=== PATIENT | female | born 1985 | race Caucasian/White ===

== ENCOUNTER 2020-04-16 10:40 | Outpatient (RCR) | payer BC, SELFPAY ==
--- NOTE | 2020-04-09 12:00 | PC.NURSE ---
IN 1000 OUT 1050 HISTORY: Pt. delivered at [facility] at 39 weeks. had no complications after delivery. Mother had no complications after delivery. is now 8 days old. Infant appears to be well cared for. has been seen by ICP as scheduled. Infant last seen by ICP on 04/06/2020. Mother reports: This is third child to breastfeed, with other children mother had issues with latch and low milk supply. Mother pumped and bottle fed with latch child and required supplementation for low milk supply and bottle fed first child. Mother states is sleepy at breast and is on and off and will nurse up to 30 minutes and not be satisfied. Mother will pump after each feeding and is supplementing 1 oz of EBM/formula each feeding. Mother has a HX of low milk supply and hormone related infertility. Discussed how infertility may impact milk supply. Mother wishes: To increase milk supply and discontinue supplementation. Currently at 8 wets per day and 1-2 yellow seedy stools per day. weight: 7#14 Discharge weight: 7#5 Last Weight: 7#3 on 04/09 Pre feeding weight: 3365 Post feeding weight: 3397 OBSERVATION: Mother puts to breast in cradle positioning, allowing to latch shallow to breast. Infant will eagerly latch with with freq. suckling/ swallowing noted, then infant slips down and releases latch. will fuss and make weak attempts to latch. Demonstrated stimulation techniques to wake infant for feeding. Assisted with infant to breast. Reviewed positioning/alignment in cross cradle, holding breast in U hold and guided asymmetrical latch on. Discussed rational for each. Infant was able to latch correctly. nursed eagerly, with steady draws and frequent swallowing noted. Reviewed signs of a correct latch, effective nursing and suck swallow ratio. When infant began to slow with suckling and swallowing, advised to do breast compressions to keep milk flowing and entice infant to continue to suckle. responded well, with good eager suckling. was able to maintain latch without discomfort to mother. Advised to continue to do breast compressions during entire feeding with stimulation to keep awake and nursing effectively for increased intake and to assist with maintaining deep latch. Suggested mother hold breast during entire feeding to assist with maintaining deep latch. PLAN: Mother will follow above feeding plan using techniques for deeper latch. She will continue to supplement after each feeding and will initiate pumping for 15 minutes after every other feeding to assist with increasing supply. Mother will call with further questions or concerns. Follow up /phone call scheduled for 04/15 to evaluate feeding states and milk supply.
--- NOTE | 2020-04-16 12:00 | PC.NURSE ---
IN 1000 OUT 1045 HISTORY: Follow up visit Mother reports: Infant has seen ICP for 2 week weight check and was up to weight. Mother has been working with deep latch and keeping infant awake and effectively feeding while at breast. Mother feels is more awake and consistently feeding. is able to maintain latch with cradle positioning. requires 1 oz of EBM/formula after all breastfeedings. Mother is pumping 1-1.5 oz EBM, 2-3 times per day,reporting she has a 3 yr old and does not have time to pump each feeding. Currently at 8 wets per day and 4 yellow seedy stools per day. OBSERVATION: Mother is able to independently latch infant with appropriate positioning/alignment. She denies any nipple discomfort, infant nurses with long rhythmic draw and freq swallowing noted. Mother freq. encourages infant if pausing is noted. Discussed mother's HX of infertility and EBL that may impact milk supply. Suggested mother continue to pump as she can for the next week. Reviewed if mother has a suppressed milk production, an increase is supply may happen, it usually does not increase after 3 weeks. PLAN: Mother will continue to as she is with breast and bottle feeding, with pumping after as time allows. If an increase in supply is not noted after 3 weeks mother will discontinue pumping, she will then breast and bottle. Mother will call with further questions or concerns. Follow up phone call scheduled for 04-23-2020.
== END 2020-05-06 08:32 | disposition home or self-care (01) ==
LOC: ANHOBOP 10:40
PROVIDERS: Visit Provider Pediatrics
DX: Z39.1 Encounter for care and examination of lactating mother (principal)
CPT/HCPCS: 99212; G0463

== ENCOUNTER 2024-08-05 18:33 | Emergency (ER) | payer BC, SELFPAY ==
--- NOTE | ~2024-08-05 | XR_ITS ---
EXAMINATION: XR hand LT min 3V DATE: 08/05/2024 19:09 INDICATION: Left hand dorsal swelling and pain. TECHNIQUE: 3 views of left hand were obtained. COMPARISON: None. FINDINGS: Alignment is normal. There is a bone fragment dorsal to the carpus on the lateral view. Siomara nt spaces are normal. IMPRESSION: 1. Bone fragment dorsal to the carpus on the lateral view, which may be an avulsion fracture of dorsa l pole of triquetrum or a loose body. Reviewed, dictated and finalized at location A. PING PACKER IMPRESSION: 1. Bone fragment dorsal to the carpus on the lateral view, which may be an avul michelle fracture of dorsal pole of triquetrum or a loose body.
[2024-08-05 18:50] VITALS: BP 127/71; PULSE 71; RESP 16; TEMP 36.7; O2SAT 100
--- NOTE | 2024-08-05 18:57 | ED.GENADULT ---
HPI - General Adult General Chief complaint: Extremity Problem,Nontraumatic Stated complaint: hand injury Time Seen by Provider: 08/05/24 18:57 Source: patient, RN notes reviewed and old records reviewed Mode of arrival: ambulatory Limitations: no limitations History of Present Illness HPI narrative: 39-year-old female presents to the [facility] with tenderness, swelling to the dorsal aspect left wrist and hand. Patient states on Monday she woke up with discomfort to the left wrist, pain has increased today. Patient is left hand dominant Patient denies any injury. States that she woke up with the discomfort, pain is worse with trying to make a fist. Unable to completely extend fingers No wounds noted. No fluctuance. No signs of an abscess Onset (ago): day(s) (2) Related Data Home Medications ?Medication ?Instructions ?Recorded ?Confirmed ?Last Taken ?Type drospirenone 3 mg-estetrol 14.2 mg tablet PO 08/05/24 Unknown History (28) tablet (Nextstellis) Allergies Allergy/AdvReac Type Severity Reaction Status Date / Time No Known Allergies Allergy Verified 08/05/24 18:51 Review of Systems Review of Systems: All systems reviewed & are unremarkable except as noted in HPI and below Constitutional: Constitutional: Reports no additional constitutional complaints ENT: Reports system reviewed and no additional complaints, except as documented Cardiovascular: Cardiovascular: Reports no additional cardiovascular complaints, Denies chest pain and Denies dyspnea Respiratory: Respiratory: Reports no additional respiratory complaints, Denies chest congestion, Denies cough and Denies dyspnea Gastrointestinal: Gastrointestinal: Reports no additional gastrointestinal complaints, Denies abdominal pain, Denies nausea and Denies vomiting Musculoskeletal: Musculoskeletal: Reports as per HPI, Reports joint swelling and Reports limited range of motion Integumentary/Breasts: Skin/Breast: Reports system reviewed and no additional complaints, except as docu PMFSH Comments At the time of my signature, I reviewed and agree with the nursing past medical, surgical, social, and family history. There is no relevant family history pertinent to the patient complaint. Exam Const: General: cooperative, healthy appearing, comfortable, no acute distress, well developed, alert and well nourished Nutritional Appearance: well nourished Orientation/consciousness: patient oriented x3 Limitations: no limitations HENMT: Head: normal to inspection Face and sinus: normal facial exam and face symmetric Eyes: General: appearance normal, both eyes and all related structures Alignment and Position: alignment normal Periorbital: periorbital findings normal Neck: Neck: normal visual inspection, full ROM, no lymphadenopathy and no meningeal signs Chest: Chest palpation & inspection: normal inspection of the chest Resp: Effort & Inspection: normal respiratory effort and able to speak in complete sentences Cardio: Rate: regular rate Skin: General skin exam: normal color and no rashes or lesions noted Lesions: no lesions Rashes: no rashes Wounds: no wounds Neuro: General: patient oriented x3, gait normal, tone normal, moves all extremities and no meningeal signs Cognition (Neuro): normal cognition Speech: normal speech Gait exam (Neuro): Normal gait present Extrem: General: normal to inspection, full ROM, capillary refill normal and normal gait Left upper extremity: wrist tenderness, swelling and abnormal ROM and hand normal capillary refill, tenderness of the dorsal hand, abnormal ROM of finger pain with active ROM and swelling; no unusual warmth Psych: Appearance: grossly normal and well kempt Mental Status: mental status grossly normal Speech and movement: Normal speech and movement present and Clear speech present Affect: normal affect Attitude: cooperative Course Course Level of Care: Express Care Visit Vital Signs Vital signs: Vital Signs Temperature 98.1 F 08/05/24 18:50 Pulse Rate 71 08/05/24 18:50 Respiratory Rate 16 08/05/24 18:50 Blood Pressure 127/71 08/05/24 18:50 Pulse Oximetry 100 08/05/24 18:50 Oxygen Delivery Room Air 08/05/24 18:50 Temperature 98.1 F 08/05/24 18:50 Pulse Rate 71 08/05/24 18:50 Respiratory Rate 16 08/05/24 18:50 Blood Pressure 127/71 08/05/24 18:50 Pulse Oximetry 100 08/05/24 18:50 Oxygen Delivery Room Air 08/05/24 18:50 Reviewed Medical Decision Making MDM Narrative Medical decision making narrative: Patient sitting comfortably in exam room. Nontoxic, vitals stable. Patient in no acute distress Patient presents for left dorsal hand pain. Patient x-ray shows possible avulsion fracture, referred to multiple providers Splint applied, sling given Patient appropriate for outpatient treatment and follow-up Discharge instructions reviewed with patient, as well as provided in writing per nursing staff. The instructions also include specific and strict return/GO TO THE ER as well as f/u information. All questions have been answered, and the patient deny any further questions with discharge and discharge plan. Some parts of this dictation were generated by voice recognition software and may contain typographical and/or grammatical inaccuracies. Differential Diagnosis Differential Diagnosis: Cellulitis, fracture, contusion, sprain Medical Records Medical records reviewed: Yes I reviewed the external patient's medical records. Vital Signs Vital Signs: Vital Signs Temperature 98.1 F 08/05/24 18:50 Pulse Rate 71 08/05/24 18:50 Respiratory Rate 16 08/05/24 18:50 Blood Pressure 127/71 08/05/24 18:50 Pulse Oximetry 100 08/05/24 18:50 Oxygen Delivery Room Air 08/05/24 18:50 Temperature 98.1 F 08/05/24 18:50 Pulse Rate 71 08/05/24 18:50 Respiratory Rate 16 08/05/24 18:50 Blood Pressure 127/71 08/05/24 18:50 Pulse Oximetry 100 08/05/24 18:50 Oxygen Delivery Room Air 08/05/24 18:50 Reviewed Lab Data Lab results reviewed: Yes I reviewed the patient's lab results. Labs: Reviewed Imaging Data Radiologist's impression: EXAMINATION: XR hand LT min 3V DATE: 08/05/2024 19:09 INDICATION: Left hand dorsal swelling and pain. TECHNIQUE: 3 views of left hand were obtained. COMPARISON: None. FINDINGS: Alignment is normal. There is a bone fragment dorsal to the carpus on the lateral view. Joint spaces are normal. IMPRESSION: 1. Bone fragment dorsal to the carpus on the lateral view, which may be an avulsion fracture of dorsal pole of triquetrum or a loose body. Critical Care Time Critical Care Time Critical Care Time: No Discharge Plan Discharge Clinical Impression: Avulsion fracture Fracture of triquetrum of left wrist, closed Qualifiers: Encounter type: initial encounter Fracture alignment: nondisplaced Qualified Code(s): S62.115A - Nondisplaced fracture of triquetrum [cuneiform] bone, left wrist, initial encounter for closed fracture Patient Disposition: Home, Self-Care Condition: Stable Instructions: Wrist Fracture in Adults (ED), How to Use a Sling (ED), Splint Care (ED) Additional Instructions: Rest, ice and elevate every 2-3 hours for 15-20 minutes while awake Take Tylenol alternating with Motrin as needed for pain Follow-up with hand specialist either Dr. Riggins or Dr. Mandy Barragan. [facility] hand surgery [phone] or [phone] Follow primary care provider For new or worsening symptoms go directly to the emergency room Patient Language: Georgian Prescriptions: No Action Nextstellis 3 mg- 14.2 mg (28) tablet PO Follow-up/Referrals: Javier Riggins MD [Physician] - 2 Days Mono Van MD [Physician] - UNKNOWN,DOCTOR [Primary Care Provider] - Stand Alone Forms: Work/School Release IP Time of Disposition: 19:29
== END 2024-08-05 19:45 | disposition home or self-care (01) ==
PROVIDERS: Emergency Provider Nurse Practitioner
DX: S62.115A Nondisplaced fracture of triquetrum [cuneiform] bone, left wrist, initial encounter for closed fracture (principal); X58.XXXA Exposure to other specified factors, initial encounter
CPT/HCPCS: 29125; 73130; 99204; A4565; G0463

== ENCOUNTER 2024-08-19 08:26 | Outpatient (CLI) | payer BC, SELFPAY ==
--- NOTE | ~2024-08-19 | XR_ITS ---
EXAMINATION: XR wrist LT min 3V DATE: 08/19/2024 08:40 INDICATION: Left wrist pain TECHNIQUE: Posteroanterior, ulnar deviation, oblique, and lateral views of the left wrist were obtain ed. COMPARISON: Left hand radiographs dated 08/05/2024 FINDINGS: Bone alignment is normal. The previously seen small calcific density which projected dorsal to the pr oximal carpal row is no longer visualized. No other lesions suspicious for fracture. Joint spaces are normal. Decrease in the prior dorsal sided soft tissue swelling at the carpus.. IMPRESSION: 1. The tiny calcific density previously seen dorsal to the proximal carpal row is no longer visualize d. This could represent interval resorption of a small flake-like triquetral avulsion fracture fragme nt although a definitive donor site is not appreciated. Reviewed, dictated and finalized at location B. ENTICE INSTRUMENT TECHNICIAN IMPRESSION: 1. The tiny calcific density previously seen dorsal to the proximal carpal row is no longer visualized. This could represent interval resorption of a small fl elizabeth-like triquetral avulsion fracture fragment although a definitive donor site is not appreciated.
--- OUTSIDE RECORDS SUMMARY | 2024-08-26 13:43 | XMS_ITS | Encounter Summary ---
Author Organization [facility] Address [address] [place] [address]. [place], [place] [id number] [place] [address] Care Team Providers Care International Affairs Vice President Name Role Phone Unavailable Primary Care Provider Unavailabl e Encounter Details Date Type Department Care Team (Late st Contact Info) Description 06/13/2000 Abstract [facility] - Physical Therapy [address] [place] [address] Elan Herrmann MD [address] [place] [address] Social History Tobacco Use Types Packs/Day Years Used Date Smoking Tobacco: Never Assessed Comments Unknown Sex and Gender Information Value Date Recorded Sex Assigned at Not on file Legal Sex Female 6:43 PM CDT Gender Identity Not on file Sexual Orientation Not on file documented as of this encounter Plan of Treatment Not on file documented as of this encounter Visit Diagnoses Not on filedocumented in this encounter
--- OUTSIDE RECORDS SUMMARY | 2024-08-26 13:43 | XMS_ITS | Encounter Summary ---
Author Organization [facility] Address [address] [place] [address]. [place], [place] [address] [place] [address] Care Team Providers Care Insulator Helper Name Role Phone Unavailable Primary Care Provider Unavailabl e Encounter Details Date Type Department Care Team (Late st Contact Info) Description 02/08/2003 Abstract [facility] Diagnostic Imaging [facility] [place] [address] , Laurie Hayward MD Social History Tobacco Use Types Packs/Day Years [...]
--- OUTSIDE RECORDS SUMMARY | 2024-08-26 13:43 | XMS_ITS | Encounter Summary ---
Author Organization [facility] Address [address] [place] [address]. [place], [place] [address] [place] [address] Care Team Providers Care Range Mechanic Name Role Phone Unavailable Primary Care Provider Unavailabl e Encounter Details Date Type Department Care Team (Late st Contact Info) Description 06/16/[address] [facility] [place] [address] , Laurie Hayward MD Social History Tobacco [...]
--- OUTSIDE RECORDS SUMMARY | 2024-08-26 13:43 | XMS_ITS | Encounter Summary ---
Author Organization [facility] Address [address] [place] [address]. [place], [place] [id number] [place] [address] Care Team Providers Care Lute Packer Or Applier Name Role Phone Elan Herrmann MD Primary Care Provider [phone] Encounter Details Date Type Department Care Team (Latest Contact Info) Description 03/30/2020 10:55 AM CDT - 03/30/2020 11:59 PM CDT Hospital Encounter [facility] [place] [address] Eli Mcnamara MD [address] [place] [address] Discharge Disposition: Home or Self Care (Routine Discharge) Social History Tobacco Use Types Packs/Day Years Used Date Smoking Tobacco: Never Assessed Comments Yes Sex and Gender Information Value Date Recorded Sex Assigned at Not on file Legal Sex Female 6:43 PM CDT Gender Identity Not on file Sexual Orientation Not on file documented as of this encounter Nursing Notes * Elizabeth Machuca RN - 03/24/2020 1:43 PM CDT Discussed details of COVID testing with patient. Verbal consent given for testing. documented in this encounter Plan of Treatment Not on file documented as of this encounter Procedures Procedure Name Priority Date/Time Associated Diagnosis Comments CORONAVIRUS (COVID 19) Routine 03/30/2020 9:30 AM CDT Preop Testing documented in this encounter Results * PRE-SURGICAL/PRE-PROCEDURE CORONAVIRUS (COVID 19) (03/30/2020 9:30 AM CDT) CORONAVIRUS SARS COV 2 PCR (RESP) NOT DETECTED NOT DETECTED 04/01/2020 12:19 AM CDT [facility] Comment: A Not Detected (negative) test result for this test means that SARS- CoV-2 RNA was not present in the specimen above the limit of detection. A negative result does not rule out the possibility of COVID-19 and should not be used as the sole basis for treatment or patient management decisions. ??If COVID-19 is still suspected, based on exposure history together with other clinical findings, re-testing should be considered in consultation with public health authorities. Laboratory test results should always be considered in the context of clinical observations and epidemiological data in making a final diagnosis and patient management decisions. Please review the Fact Sheets and FDA authorized labeling available for health care providers and patients using the following websites: https://[email or web address]-19/HCP/NAAT/fact-sheet2 https://[email or web address]/home/Covid-19/Patients/NAAT/ fact-sheet2 This test has been authorized by the FDA under an Emergency Use Authorization (EUA) for use by authorized laboratories. Due to the current public health emergency, [facility] is receiving a high volume of samples from a wide variety of swabs and media for COVID-19 testing. In order to serve patients during this public health crisis, samples from appropriate clinical sources are being tested. Negative test results derived from specimens received in non-commercially manufactured viral collection and transport media, or in media and sample collection kits not yet authorized by FDA for COVID-19 testing should be cautiously evaluated and the patient potentially subjected to extra precautions such as additional clinical monitoring, including collection of an additional specimen. Methodology: ??Nucleic Acid Amplification Test (NAAT) includes PCR or TMA Additional information about COVID-19 can be found at the [facility] website: [email or web address]. Test performed at [facility] [address] [place], [place] ??[phone] Director: MAYKEL ROBLES DO,MPH NASOPHARYNGEAL SWAB / Unknown 03/30/2020 9:30 AM CDT us Eli Mcnamara MD MICROBIOLOGY - GENERAL ORDERABLE S Final Result [facility] [address] [place] [address], documented in this encounter Visit Diagnoses Diagnosis Preop testing Preoperative examination, unspecified documented in this encounter Additional Health Concerns Infection Onset Date Last Indicated Resolved Time COVID-19 Rule Out 03/30/2020 03/30/2020 04/01/2020 12:19 AM CDT documented as of this encounter Care Teams Lute Packer Or Applier Relationship Specialty Start Date End Date Elan Herrmann MD [address] [place] [address] PCP - General FAMILY PRACTICE 03/25/20 documented as of this encounter
--- OUTSIDE RECORDS SUMMARY | 2024-08-26 13:43 | XMS_ITS | Encounter Summary ---
Author Organization [facility] Address [address] [place] [address]. [place] [address] [place] [address] Care Team Providers Care Vice President Quality Assurance Name Role Phone Unavailable Primary Care Provider Unavailabl e Encounter Details Date Type Department Care Team (Late st Contact Info) Description 03/24/[address] [facility] [place] [address] Eli Mcnamara MD [address] [place] [address] Social History Tobacco Use Types Packs/Day Years Used Date Smoking Tobacco: Never Assessed Comments Unknown Sex and Gender Information Value Date Recorded Sex Assigned at Not on file Legal Sex Female 6:43 PM CDT Gender Identity Not on file Sexual Orientation Not on file documented as of this encounter Plan of Treatment Not on file documented as of this encounter Results * PRE-SURGICAL/PRE-PROCEDURE CORONAVIRUS (COVID 19) (03/30/2020 9:30 AM CDT) CORONAVIRUS SARS COV 2 PCR (RESP) NOT DETECTED NOT DETECTED 04/01/2020 12:19 AM CDT [facility] Comment: A Not Detected (negative) test [...] providers and patients using the following websites: https://www.[email or web address] de Cadeaux/home/Covid-[email or web address]/HCP/NAAT/fact-sheet2 https://www.[email or web address].Graine de Cadeaux/home/Covid-19/Patients/NAAT/ fact-sheet2 This test has been authorized by the FDA under an Emergency Use Authorization (EUA) for use by authorized laboratories. Due to the current public health emergency, [facility] is receiving a high volume of samples [...] about COVID-19 can be found at the [facility] website: www.O-film/Covid19. Test performed at [facility] [place] [address] [place], [place] ??[phone] Director: MAYKEL ROBLES DO,MPH NASOPHARYNGEAL SWAB / Unknown 03/30/2020 9:30 AM CDT us Eli Mcnamaar MD MICROBIOLOGY - GENERAL ORDERABLE S Final Result [facility] [address] [address] documented in this encounter Visit Diagnoses Diagnosis Preop testing- Primary Preoperative examination, unspecified documented in this encounter
--- OUTSIDE RECORDS SUMMARY | 2024-08-26 13:43 | XMS_ITS | Encounter Summary ---
Author Organization [facility] Address [address] [place] [address]. [place], [place] [address] [place] [address] Care Team Providers Care Certified Art Therapist Name Role Phone Elan Herrmann MD Primary Care Provider +1- [phone] Encounter Details Date Type Department Care Team (Latest Contact Info) Description 04/01/2020 Travel Social History Tobacco Use Types Packs/Day Years Used Date Smoking Tobacco: Former Cigarettes Smokeless Tobacco: Never Alcohol Use Standard Drinks/Week Comments Not Currently 0 (1 standard drink = 0.6 oz pur e alcohol) Comments Yes Sex and Gender Information Value Date Recorded Sex Assigned at Not on file Legal Sex Female 6:43 PM CDT Gender Identity Not on file Sexual Orientation Not on file COVID-19 Exposure Response Date Recorded In the last month, have you been in contact with someone who was confirmed or suspected to have Coronavirus / COVID-19? No / Unsure 04/01/2020 1:16 PM CDT documented as of this encounter Functional Status * Question Answer Date of Assessment Author Status Do you have serious difficulty walking or climbing stairs? No 04/01/2020 1:32 PM CDT Devi Miguel RN Active * Question Answer Date of Assessment Author Status Do you have difficulty dressing or bathing? No 04/01/2020 1:32 PM CDT Devi Miguel RN Active Because of a physical, mental, or emotional condition, do you have difficulty doing errands alone such as visiting a doctor's office or shopping? No 04/01/2020 1:32 PM CDT Liss Miguel RN Active * RETIRED Are you deaf or do you have serious difficulty hearing Answer Date of Assessment Author Status No 04/01/2020 1:32 PM CDT Activ e * RETIRED Are you blind or do you have serious difficulty seeing, even when wearing glasses? Answer Date of Assessment Author Status No 04/01/2020 1:32 PM CDT Activ e * Do you have serious difficulty walking or climbing stairs? Answer Date of Assessment Author Status No 04/01/2020 1:32 PM CDT Diana Miguel RN Active * Do you have difficulty dressing or bathing? Answer Date of Assessment Author Status No 04/01/2020 1:32 PM CDT Diana Miguel RN Active * Because of a physical, mental, or emotional condition, do you have difficulty doing errands alone such as visiting a doctor's office or shopping? Answer Date of Assessment Author Status No 04/01/2020 1:32 PM CDT Diana Miguel RN Active documented as of this encounter Mental Status * Question Answer Entry Date Author Status Because of a physical, mental, or emotional condition, do you have serious difficulty concentrating, remembering, or making decisions? No 04/01/2020 1:32 PM CDT Louise Miguel RN Active * Because of a physical, mental, or emotional condition, do you have serious difficulty concentrating, remembering, or making decisions? Answer Entry Date Author Status No 04/01/2020 1:32 PM CDT Diana Miguel RN Active documented in this encounter Plan of Treatment Not on file documented as of this encounter Visit Diagnoses Not on filedocumented in this encounter Additional Health Concerns Infection Onset Date Last Indicated Resolved Time COVID-19 Rule Out 03/30/2020 03/30/2020 04/01/2020 12:19 AM CDT documented as of this encounter Care Teams Certified Art Therapist Relationship Specialty Start Date End Date Elan Herrmann MD [address] [address] PCP - General FAMILY PRACTICE 03/25/20 documented as of this encounter
--- OUTSIDE RECORDS SUMMARY | 2024-08-26 13:43 | XMS_ITS | Clinical Summary ---
Author Organization [facility] Address [address] [place] [address]. [place], [place] [address] [place] [address] Care Team Providers Care Portfolio Accountant Name Role Phone Elan Herrmann MD Primary Care Provider +1- [phone] Allergies No known active allergies Medications sertraline 25 MG tablet Take 25 mg by mouth daily. Active HYDROcodone-acet aminophen 5-325 MG tabletIndication s:Acute Pain < 3 Day Supply Take 1 tablet by mouth every 4 (four) hours as needed. Indications : Acute Pain < 3 Day Supply 7 tablet 04/03/2020 Active Active Problems Problem Noted Date Diagnosed Date ([facility]) 04/01/2020 Family History Medical History Relation Comments No Known Problems Daughter POLIO Father Cancer Maternal Grandfather COLON Cancer Maternal Grandmother COLON Alzheimers Mother EARLY ONSET Cancer Paternal Grandfather Dementia Paternal Grandfather Dementia Paternal Grandmother No Known Problems Sister No Known Problems Son Relation Status Comments Daughter Alive Father Alive Maternal Grandfather Maternal Grandmother Mother Alive Paternal Grandfather Paternal Grandmother Sister Alive Son Alive Social History Tobacco Use Types Packs/Day Years Used Date Smoking Tobacco: Former Cigarettes Smokeless Tobacco: Never Alcohol Use Standard Drinks/Week Comments Not Currently 0 (1 standard drink = 0.6 oz pur e alcohol) Comments No Sex and Gender Information Value Date Recorded Sex Assigned at Not on file Legal Sex Female 6:43 PM CDT Gender Identity Not on file Sexual Orientation Not on file Last Filed Vital Signs Vital Sign Reading Time Taken Comments Blood Pressure 126/83 04/03/2020 9:50 AM CDT Pulse 79 04/03/2020 9:50 AM CDT Temperature 36.6 ??C (97.9 ??F) 04/03/2020 9:50 AM CD T Respiratory Rate 16 04/03/2020 9:50 AM CDT Oxygen Saturation 97% 04/03/2020 9:50 AM CDT Inhaled Oxygen Concentration - - Weight 93 kg (205 lb) 04/02/2020 12:01 AM CDT Height 157.5 cm (5' 2 ) 04/02/2020 12:01 AM CDT Body Mass Index 37.49 04/02/2020 12:01 AM CDT Plan of Treatment Health Maintenance Due Date Last Done Comments Cervical Cancer Screening Pa p Smear (Age 30 to 64) Every 3 Years 1985 Annual Physical 1988 Hepatitis C 2003 DTaP, Tdap and Td Vaccines ( 1 - Tdap) 2004 Hepatitis B Vaccines (1 of 3 - 19+ 3-dose series) 2004 Cervical Cancer Screening Pa p with HPV Testing (Age 30 to 64) Every 5 Years 2015 Cervical Cancer Screening with HPV 2015 COVID-19 Vaccine (2023-2 5 season) 2024 Influenza Adult (#1) 2024 HPV Vaccines Aged Out No longer eligi ble based on patient's age to complete this topic Meningococcal Vaccine Aged Out No magi kwabena eligible based on patient's age to complete this topic Pneumococcal Vaccine: Pediat rics (0 to 5 Years) and At-Risk Patients (6 to 64 Years) Aged Out No longer eligible b ased on patient's age to complete this topic RSV Immunizations Under 20 Months Aged Out No longer eligible based on patient's age to complete this topic Insurance [facility] Advance Directives * Full Code (Latest Code Status on File) Date Activated Date Inactivated Comments 04/01/2020 2:06 PM 04/03/2020 3:05 PM Care Teams Portfolio Accountant Relationship Specialty Start Date End Date Elan Herrmann MD [address] [place] [address] PCP - General FAMILY PRACTICE 03/25/20
--- OUTSIDE RECORDS SUMMARY | 2024-08-26 13:43 | XMS_ITS | Encounter Summary ---
Author Organization [facility] Address [address] [place] [address]. [place] [address] [place] [address] Care Team Providers Care School Cafeteria Head Cook Name Role Phone Elan Herrmann MD Primary Care Provider +1- [phone] Reason for Visit * Auth/Cert Specialty Diagnoses / Procedures Referred By Contac t Referred To Contact Diagnoses Procedures INPT Referral ID Status Reason Start Date Expiration Date Visits Re quested Visits Authorized [id number] 1 1 Encounter Details Date Type Department Care Team (Late st Contact Info) Description 04/01/2020 8:33 PM CDT Anesthesia Event [facility] [place] [address] Luciano Avery CRNA [address] [place] [address] [place] [address] Anesthesia Record Procedure Summary Procedure Name Responsible Anesthesiologist Anesthesia Start Time Anesthesia Stop Time LABOR EPIDURAL Events Date Time Event Comment 04/01/20202036 Floor Procedure 2049 Epidural Start 2104 An Epidural Placement Comple te 2237 Quick Note Called to [facility] room for c/o pain with ctx's. Pain rated at 7/10, primarily on left side. Epidural assessed, catheter pulled back 1cm and re-dosed after negative aspiration. Positioned MARQUIS. 2307 Quick Note Relief noted. Meds Name Total lidocaine 1.5%-EPINEPHrine 1:200,000 inj ection 4 mL fentaNYL 2 mcg/mL-BUpivacaine 0.125 % 15 0 mL epidural 31.8 mL BUpivacaine 0.5% (PF) injection 3 mL lidocaine 2%-EPINEPHrine 1:200,000 injec tion 3 mL * Agents No agents on file. * Blood No blood administrations on file. Lines, Drains, and Airways Type Details Placement Removal Epidural Placement Date: 03/21 10/10; Placement Time: 2105 (created via procedure documentation); Placement Location: Lumbar; Removal Date: 04/02/20; Removal Time: 20504/01/202105 by Luciano Avery, GREEN PRIZE PACKER 04/02/20205 by Gini Castillo RN documented in this encounter Social History Tobacco Use Types Packs/Day Years [...] climbing stairs? No 04/01/2020 1:32 PM CDT Liss Miguel RN Active * Question Answer Date of Assessment Author Status Do you have difficulty dressing or bathing? No 04/01/2020 1:32 PM CDT Devi Miguel RN Active Because of a physical, mental, or emotional condition, do you have difficulty doing errands alone such as visiting a doctor's office or shopping? No 04/01/2020 1:32 PM MARIA DE JESUST Liss Miguel RN Active * RETIRED Are [...] Miguel RN Active documented in this encounter OR Notes * Anesthesia Postprocedure Evaluation - Diana [place] CRNA - 04/02/2020 1:01 PM CDT Anesthesia Post-op Note Dorothy Landa Procedure(s): LABOR EPIDURAL Anesthesia type: epidural Vitals: 04/02/20 0759 BP: 131/83 Vitals: 04/02/20 0759 Pulse: 65 Vitals: 04/02/20 0759 Resp: 18 Vitals: 04/02/20 0759 Temp: 36.9 ??C Vitals: 04/01/20 2101 SpO2: 99% Patient Location: Labor & Delivery Level of Consciousness: awake, alert and oriented Pain Management: adequate analgesia Airway Patency: patent Respiratory Status: acceptable, spontaneous ventilation and room air Cardiovascular Status: acceptable and stable Post-Op Nausea: none Postoperative Hydration: euvolemic Complications: no anesthesia complication Comments: Blood pressure 131/83, pulse 65, temperature 36.9 ??C, temperature source Oral, resp. rate 18, height 5' 2 (1.575 m), weight 93 kg (205 lb), SpO2 99%. * Anesthesia Procedure Notes - Luciano Avery CRNA - 04/01/2020 9:06 PM CDT Associated Order(s): Labor Epidural Epidural: Date/Time: 04/01/2020 9:06 PM Patient location during procedure: OB Reason for block: labor epidural Preanesthetic Checklist Completed: patient identified, consent, pre-op evaluation, timeout performed, IV checked, risks andbenefits discussed and monitors and equipment checked Procedure Information: Patient position: sitting Prep: chlorhexidine Patient monitoring: continuous pulse oximetry, heart rate and non-invasive blood pressure Approach: midline Location: L3-L4 Injection technique: PATRICIO saline Placement Location: lumbar Ultrasound-guided Placement: No Needle and Catheter: MRI Compatible: B Trimble Perifix tray Ref # [id number] Needle type: Tuohy Needle gauge: 17 G Needle length: 3.5 in Needle insertion depth: 6.5 cm Catheter type: side hole Catheter size: 19 G Catheter at skin depth: 11.5 cm Test dose: negative and lidocaine 1.5% with epinephrine 1-to-200,000 Needle attempts: 1 Additional Notes Called to room for c/o pain with ctx's. Pain rated at 3/10. Placed epidural without complications. Well tolerated. MARQUIS/SHRUTHI on completion. Post epidural pain rated at 0/10. Epidural kit Lot: [id number] Exp: 01/2021 * Anesthesia Preprocedure Evaluation - Luciano Avery CRNA - 04/01/2020 8:34 PM CDT Anesthesia ROS/MED History Reviewed: Patient summary , Nursing notes , Family history anesthesia, Anesthesia history , Medications , Labs , Images/Studies , Unchecked boxes are not applicable Pre-Anesthetic State: alert, awake and responds appropriately Pulmonary neg pulmonary ROS Cardiovascular neg cardio ROS Exercise tolerance:good Neuro/Psych (+) psychiatric problem, (anxiety) GI/Hepatic/Renal neg GI/hepatic/renal ROS Endo/Other (+) obese GENERAL COMMENTS No Known Allergies Past Medical History: No date: Abnormal Pap smear of cervix Comment: colposcopy No date: Anxiety Comment: zoloft for past few weeks No date: Infertility, female Comment: Letrizole for conception History reviewed. No pertinent surgical history. Physical Evaluation Airway Mallampati: II TM Distance: >3 FB Neck ROM: normal Dental No notable dental history Pulmonary Pulmonary exam normal Cardiovascular Cardiovascular exam normal Other findings: Blood pressure (!) 139/98, pulse 68, temperature 37 ??C, temperature source Oral, resp. rate 14, SpO2 100 %. 04/01/20 1400 WBC 6.0 RBC 3.57* HGB 11.1* HCT 33.5* PLT 211 Anesthesia Plan ASA 2 Induction Anesthesia type: epidural ASH per patient request. Risk, benefits, and alternative options discussed. Patient consented and wishes to proceed. Originally scheduled for c/s today for breech presentation. OB verified vertex by bedside ultrasound. Patient admitted for induction. Informed Consent Anesthetic plan and risks discussed with patient of whom consent was obtained. . documented in this encounter Plan of Treatment Not on file documented as of this encounter Procedures Procedure Name Priority Date/Time Associated Diagnosis Comments LABOR EPIDURAL Routine 04/01/2020 9:06 PM CDT documented in this encounter Results * LABOR EPIDURAL (04/01/2020 9:06 PM CDT) Narrative Luciano Avery CRNA - 04/01/2020 9:06 PM CDT Luciano Avery CRNA ? 04/01/2020 ??9:07 PM Epidural: Date/Time: ??04/01/2020 9:06 PM Patient location during procedure: OB Reason for block: labor epidural Preanesthetic Checklist Completed: patient identified, consent, pre-op evaluation, timeout performed, IV checked, risks and benefits discussed and monitors and equipment checked Procedure Information: Patient position: sitting Prep: chlorhexidine Patient monitoring: continuous pulse oximetry, heart rate and non-invasive blood pressure Approach: midline Location: L3-L4 Injection technique: PATRICIO saline Placement Location: ??lumbar Ultrasound-guided Placement: ??No Needle and Catheter: MRI Compatible: B Trimble Perifix tray Ref # [id number] Needle type: Tuohy Needle gauge: 17 G Needle length: 3.5 in Needle insertion depth: 6.5 cm Catheter type: side hole Catheter size: 19 G Catheter at skin depth: 11.5 cm Test dose: negative and lidocaine 1.5% with epinephrine 1-to-200,000 Needle attempts: ??1 Additional Notes Called to room for c/o pain with ctx's. ??Pain rated at 3/10. ??Placed epidural without complications. ??Well tolerated. ??MARQUIS/SHRUTHI on completion. ?? Post epidural pain rated at 0/10. Epidural kit Lot: ??[id number] Exp: ??01/2021 Luciano Avery GREEN PRIZE PACKER [place] ANESTHESIA Final Resu lt documented in this encounter Visit Diagnoses Not on filedocumented in this encounter Administered Medications Inactive Administered Medications - up to 3 most recent administrations Medication Order MAR Action Action Date Dose Rate Site BUpivacaine (PF) (MARCAINE) 0.5 % injection PRN, Starting on Mon04/01/20 at 2238, Until Dilcia 04/02/20 at 1302, Anesthesia Intra-Op Given 04/01/2020 10:38 PM CDT 3 mLs fentaNYL 2 mcg/mL-BUpivacaine 0.125 % 150 mL epidural 12 mL/hr, Epidural, Continuous, Starting on Mon04/01/20 at 2100, Until Dilcia 04/02/20 at 0015, Continuous Epidural Infusion with Patient Controlled Epidural Analgesia (PCEA) BASAL INFUSION RATE: 12 mL/hr PCEA DEMAND DOSE: 7mL LOCKOUT INTERVAL: 30 minutes MAX DOSE LOCKOUT: 112mL / 4 hours New Bag 04/01/2020 9:05 PM CDT 12 mL/hr 12 mL/hr lidocaine-EPINEPHrine 1.5 %-1:[id number] injection Epidural, PRN, Starting on Mon04/01/20 at 2056, Until Dilcia 04/02/20 at 1302, Anesthesia Intra-Op Given 04/01/2020 8:57 PM CDT 1 mL Given 04/01/2020 8:56 PM CDT 3 mLs lidocaine-EPINEPHrine 2 %-1:[id number] injection PRN, Starting on Mon04/01/20 at 2238, Until Dilcia 04/02/20 at 1302, Anesthesia Intra-Op Given 04/01/2020 10:38 PM CDT 3 mLs documented in this encounter Care Teams School Cafeteria Head Cook Relationship Specialty Start Date End Date Elan Herrmann MD [address] [place] [address] PCP - General FAMILY PRACTICE 03/25/20 documented as of this encounter
--- OUTSIDE RECORDS SUMMARY | 2024-08-26 13:43 | XMS_ITS | Encounter Summary ---
Author Organization [facility] Address [address] [place] [address]. [place], [place] [address] [place] [address] Care Team Providers Care Tool Room Machinist Name Role Phone Elan Herrmann MD Primary Care Provider +1- [phone] Encounter Details Date Type Department Care Team (Late st Contact Info) Description 04/06/2020 Hospital Follow-up Call [facility] Women [place] [address] Marla Page, RN Social History Tobacco Use Types Packs/Day Years [...] as of this encounter Functional Status * RETIRED Are you deaf or do [...] as of this encounter Mental Status * Because of a physical, mental, or emotional condition, do you have serious difficulty concentrating, remembering, or making decisions? Answer Entry Date Author Status No 04/01/2020 1:32 PM CDT Diana Miguel RN Active documented in this encounter Plan of Treatment Not on file documented as of this encounter Visit Diagnoses Not on filedocumented in this encounter Care Teams Tool Room Machinist Relationship Specialty Start Date End Date Elan Herrmann MD [address] [facility] [address] [place] [address] PCP - General FAMILY PRACTICE 03/25/20 documented as of this encounter
--- OUTSIDE RECORDS SUMMARY | 2024-08-26 13:43 | XMS_ITS | Encounter Summary ---
Author Organization [facility] Address [address] [place] [address]. [place], [place] [address] [place] [address] Care Team Providers Care Special Delivery Mail Carrier Name Role Phone Unavailable Primary Care Provider Unavailabl e Encounter Details Date Type Department Care Team (Late st Contact Info) Description 06/12/2003 Abstract [facility] Labor [place] [address] , Laurie Hayward MD Social History Tobacco [...]
--- OUTSIDE RECORDS SUMMARY | 2024-08-26 13:43 | XMS_ITS | Encounter Summary ---
Author Organization [facility] Address [address] [place] [address]. [place], [place] [address] [place] [address] Care Team Providers Care Heel Seam Rubber Name Role Phone Unavailable Primary Care Provider Unavailabl e Encounter Details Date Type Department Care Team (Late st Contact Info) Description 07/16/[address] [facility] [address] [place], [place] [address] , Laurie Hayward MD Social History Tobacco [...]
--- OUTSIDE RECORDS SUMMARY | 2024-08-26 13:43 | XMS_ITS | Encounter Summary ---
Author Organization [facility] Address [address] [place] [address]. [place], [place] [id number] [place] [id number] Care Team Providers Care Foreign Food Cook Specialty Name Role Phone Elan Ying MD Primary Care Provider [phone] Reason for Visit * Reason Comments Induction * Auth/Cert Specialty Diagnoses / Procedures Referred By Contac t Referred To Contact Diagnoses Procedures INPT Referral ID Status Reason Start Date Expiration Date Visits Re quested Visits Authorized [id number] 1 1 Encounter Details Date Type Department Care Team (Latest Contact Info) Description 04/01/2020 12:56 PM CDT - 04/03/2020 1:00 PM CDT Hospital Encounter [facility] [place], [place] [id number] Mireille Tracey MD [address] [place], [place] [id number] Induction Discharge Disposition: Home or Self Care (Routine [...] PM CDT documented as of this encounter Last Filed Vital Signs Vital Sign Reading [...] Mass Index 37.49 04/02/2020 12:01 AM CDT documented in this encounter Functional Status * Question Answer [...] Miguel RN Active documented in this encounter Discharge Summaries * Jayden Carney MD - 04/03/2020 9:16 AM CDT Physician Discharge Summary Patient ID: Dorothy Ladna [id number] 34-year-old 1985 Primary Care Physician: ELAN YING MD Admit date: 04/01/2020 Expected Discharge Date: 04/03/20 Admitting Physician: Mireille Tracey MD Discharge Physician: Angelika Admission Diagnoses: Discharge Diagnoses: , s/p delivery Admission Condition: good Discharged Condition: good Indication for Admission: eIOL Hospital Course: Patient was admitted secondary to eIOL. IP and delivery course uncomplicated. Babygirl was delivered and remained in room with mom. PP course has been uncomplicated. Currently, painis controlled with PO meds. Tolerating a PO diet without any nausea/vomiting. Ambulating, voiding and passing flatus. Scant bleeding. Breast feeding. Denies any emotional concerns. Consults: none Code Status: Full Code Procedures: Procedures (From admission, onward) HEMOGLOBIN AND HEMATOCRIT Routine RAPID DRUG SCREEN STAT TYPE AND SCREEN STAT URINALYSIS STAT CBC W/DIFF AUTOMATED STAT Referrals: No orders of the defined types were placed in this encounter. Significant Diagnostic Studies: labs: reviewed in [facility] Treatments: none Discharge Exam: Filed Vitals: 04/02/20 0146 04/02/20 0201 04/02/20 0759 04/02/20 2100 BP: 123/62 132/56 131/83 135/77 Pulse: 80 82 65 83 Resp: 18 16 Temp: 98.5 ??F (36.9 ??C) 97.9 ??F (36.6 ??C) TempSrc: Oral Oral SpO2: Weight: Height: alert, appears stated age and cooperative clear to auscultation bilaterally Heart: S1, S2 normal and regular rate and rhythm soft, nondistended and normal bowel sounds scant bleeding Extremities: no edema, redness or tenderness in the calves or thighs Disposition: Final discharge disposition not confirmed Patient Instructions: Current Discharge Medication List START taking these medications Details docusate sodium 100 MG capsule Take 1 capsule (100 mg total) by mouth every 12 (twelve) hours for 10 days. Qty: 60 capsule, Refills: 1 HYDROcodone-acetaminophen 5-325 MG tablet Take 1 tablet by mouth every 4 (four) hours as needed. Indications: Acute Pain < 3 Day Supply Qty: 7 tablet, Refills: 0 ibuprofen 600 MG tablet Take 1 tablet (600 mg total) by mouth every 6 (six) hours as needed. Qty: 60 tablet, Refills: 1 CONTINUE these medications which have NOT CHANGED Details sertraline 25 MG tablet Take 25 mg by mouth daily. Activity: activity as tolerated, no sex for 6 weeks, no driving while on analgesics and no heavy lifting for 6 weeks Diet: regular diet Wound Care: none needed Follow-up with [facility] in 2 weeks. Signed: JAYDEN CARNEY MD 04/03/2020 9:16 AM documented in this encounter Medications at Time of Discharge HYDROcodone-aceta minophen 5-325 MG tabletIndications :Acute Pain < 3 Day Supply Take 1 tablet by mouth every 4 (four) hours as needed. Indications: Acute Pain < 3 Day Supply 7 tablet 04/03/2020 sertraline 25 MG tablet Take 25 mg by mouth daily. docusate sodium 100 MG capsule Take 1 capsule (100 mg total) by mouth every 12 (twelve) hours for 10 days. 60 capsule 1 04/03/2020 04/13/2020 ibuprofen 600 MG tablet Take 1 tablet (600 mg total) by mouth every 6 (six) hours as needed. 60 tablet 1 04/03/2020 04/13/2020 documented as of this encounter Progress Notes * Marla Page RN - 04/03/2020 11:40 AM CDT clc to assist with latching. Infant placed in football hold on left side. fussy, calmed withpacy and placed at breast. Latch established after a few attempts using drips of formula. actively nursing. Discussed with mother how to latch infant if coming off and on breast. U/v. Will continue to monitor today. * Marla Page RN - 04/03/2020 11:21 AM CDT clc in for rounds. Questions about feedings discussed. Mother requesting latch assessmentat next feeding. * Chantell Petersen RN - 04/02/2020 11:56 AM CDT CLC to room for rounds. Pt reports is going well and denies questions at this time. Pt encouraged to call for assistance at any time. Pt verbalizes understanding. * Jayden Carney MD - 04/02/2020 11:20 AM CDT PP Note 04/02/20 PPD 1 S: Pt doing well this AM. Pain controlled w/po meds. Lochia scant. + Ambulation. Tolerating regulardiet without any nausea, vomiting. Denies any fever, chills. Denies any emotional concerns. Breast feeding. Vitals: 04/02/20 0759 BP: 131/83 Pulse: 65 Resp: 18 Temp: 98.5 ??F (36.9 ??C) SpO2: Intake/Output Summary (Last 24 hours) at 04/02/2020 1120 Last data filed at 04/01/2020 2344 Gross per 24 hour Intake -- Output 400 ml Net -400 ml PE Cardiovascular: RRR Respiratory: CTAB Abdomen: +BS, fundus firm, non-distended Pelvic: scant bleeding Ext: trace edema, no calf tenderness Labs reviewed in Epic. A/P: 34-year-old PPD1 s/p at 39w0d without any complications. 1. AFVSS 2. -reviewed above labs and vitals -adequate UOP -O POSITIVE, no indication for rhogam -HIV/HepB/RPR NR -antepartum H/H: , PP H/H 06/20 ?? 3. -female, in room -Breast feeding ?? 4. Dispo -will continue with routine PP care -encouraged continued breast feeding -encouraged continued activity level -will likely discharge home tomorrow am * Mireille Tracey MD - 04/01/2020 8:27 PM CDT Doorthy Landa 1985 [id number] Labor Note Subjective: In to check on labor pt. She has had 1 cytotec. She is feeling mild cramping Objective: Filed Vitals: 04/01/20201304/01/20201804/01/20202204/01/202023 BP: 133/86 Pulse: 78 85 70 72 Resp: Temp: SpO2: 100% Physical Exam: Cervix: 4/50/-3 Heart Tones: reactive no decels [place]: q4 Assessment/Plan: 34-year-old at 39 wks, with labor being induced. Will allow epidural and then perform amniotomy. GBS negative MIREILLE TRACEY MD documented in this encounter H&P Notes * Mireille Tracey MD - 04/01/2020 3:05 PM CDT History and Physical Travel Exposure: none CC: induction of labor HPI: Dorothy Landa is a 34-year-old with Estimated Date of Delivery: 04/08/20 at 39w0d weeks gestation who is being admitted this afternoon for induction of labor. Her has been complicated by breech presentation, recently found to be vertex in office. She is O negative and received Rhogam. She is GBS negative. Results for orders placed or performed during the hospital encounter of 04/01/20 OBSTETRIC PANEL Result Value Ref Range SYPHILIS IGG AB NR CBC W/DIFF AUTOMATED Result Value Ref Range WBC 6.0 4.5 - 11.0 x10'3/uL HGB 11.1 (L) 12.0 - 16.0 G/DL PLT 211 130 - 400 x10'3/uL Past Medical History: Diagnosis Date ??? Abnormal Pap smear of cervix colposcopy ??? Anxiety zoloft for past few weeks ??? Infertility, female Letrizole for conception History reviewed. No pertinent surgical history. Family History Problem Relation Name Age of Onset ??? Cancer Maternal Grandmother COLON ??? Alzheimers Mother EARLY ONSET ??? Other (POLIO) Father ??? No Known Problems Sister ??? Cancer Maternal Grandfather COLON ??? Dementia Paternal Grandmother ??? Dementia Paternal Grandfather ??? Cancer Paternal Grandfather ??? No Known Problems Son ??? No Known Problems Daughter Social History Socioeconomic History ??? Marital status: Spouse name: Not on file ??? Number of children: Not on file ??? Years of education: Not on file ??? Highest education level: Not on file Occupational History ??? Not on file Social Needs ??? Financial resource strain: Not on file ??? Food insecurity: Worry: Not on file Inability: Not on file ??? Transportation needs: Medical: Not on file Non-medical: Not on file Tobacco Use ??? Smoking status: Former Smoker Types: Cigarettes ??? Smokeless tobacco: Never Used Substance and Sexual Activity ??? Alcohol use: Not Currently ??? Drug use: Never ??? Sexual activity: Yes Lifestyle ??? Physical activity: Days per week: Not on file Minutes per session: Not on file ??? Stress: Not on file Relationships ??? Social connections: Talks on phone: Not on file Gets together: Not on file Attends temple service: Not on file Active member of club or organization: Not on file Attends meetings of clubs or organizations: Not on file Relationship status: Not on file ??? Intimate partner violence: Fear of current or ex partner: Not on file Emotionally abused: Not on file Physically abused: Not on file Forced sexual activity: Not on file Other Topics Concern ??? Not on file Social History Narrative ??? Not on file No current facility-administered medications on file prior to encounter. Current Outpatient Medications on File Prior to Encounter Medication Sig Dispense Refill ??? sertraline 25 MG tablet Take 25 mg by mouth daily. No Known Allergies Review of Systems Constitutional: Negative for chills and fever. HENT: Negative for ear pain and hearing loss. Eyes: Negative for blurred vision. Respiratory: Negative for cough and sputum production. Cardiovascular: Negative for chest pain and leg swelling. Gastrointestinal: Negative for abdominal pain, heartburn, nausea and vomiting. Genitourinary: Negative for dysuria. Musculoskeletal: Negative for back pain. Skin: Negative for rash. Neurological: Negative for dizziness and headaches. Endo/Heme/Allergies: Does not bruise/bleed easily. Psychiatric/Behavioral: Negative for depression and substance abuse. OBJECTIVE Vital signs in last 24 hours: Temp: [98.2 ??F (36.8 ??C)] 98.2 ??F (36.8 ??C) Pulse: [65-100] 65 Resp: [16] 16 BP: (123-147)/(54-86) 128/82 General: alert, appears stated age and cooperative Skin: normal and no rash or abnormalities HEENT: neck supple with midline trachea Lungs: no respiratory distress Heart: regular rate and rhythm Abdomen: soft, gravid Pelvis: Vulva and vagina appear normal, FHT: Reactive no decels Contractions: occasional Uterine Size: Presentations: vtx - confirmed by u/s EFW: Cervix: Dilation: 2 Effacement: 25 Station: flt Consistency: med Position: post Labs: WBC Date Value Ref Range Status 04/01/2020 6.0 4.5 - 11.0 x10'3/uL Final HGB Date Value Ref Range Status 04/01/2020 11.1 (L) 12.0 - 16.0 G/DL Final PLT Date Value Ref Range Status 04/01/2020 211 130 - 400 x10'3/uL Final No results found for this or any previous visit. ASSESSMENT 39w0d weeks gestation here for cytotec IOL. History of breech, position confirmed with u/s as vertex Tracing is reassuring GBS negative, Bl type O+ PLAN Begin induction with cytotec vaginally. Amniotomy when feasible. Monitor tracing and progress MIREILLE TRACEY MD documented in this encounter Procedure Notes * Mireille Tracey MD - 04/02/2020 12:02 AM CDT OB DELIVERY NOTE Patient name: Dorothy Landa Date of delivery: 04/01/20 Time of : 23:44 Delivering provider: Mireille Tracey MD Type of delivery: Spontaneous vaginal delivery Anesthesia: epidural Lacerations and repair: none Episiotomy and repair: none Baby's name: Jose Antonio Baby's weight: 7p14 oz Baby's length: 20.5 Apgars: 8/9 EBL: 100cc Placenta: spontaneous, intact I was called to the labor room secondary to heart tones in the 60's. Pt was in knee chest position with nurses at bedside. She was placed in lithotomy and checked, was complete and +1, SHIRLEY. She beganto push, and pushed effectively The heartrate came back up to baseline. The head began to crown and she delivered over an intact perineum. Baby girl Jose Antonio was placed to mother's abdomen and dried, she was crying vigorously. Her cord was clamped and cut after 1 minute. Samples of cord blood and gases were obtained. The placenta was delivered intact and spontaneous. Mother and baby were stable after delivery. documented in this encounter Plan of Treatment Not on file documented as of this encounter Procedures Procedure Name Priority Date/Time Associated Diagnosis Comments HEMOGLOBIN AND HEMATOCRIT STAT 04/02/2020 8:45 AM CDT CBC W/DIFF AUTOMATED STAT 04/01/2020 2:00 PM CDT DRUG SCREEN RAPID STAT 04/01/2020 1:4 5 PM CDT TYPE & SCREEN STAT 04/01/2020 1:45 PM CDT HC URINALYSIS AUTO W/O MICRO STAT 04/01/2020 1:45 PM CDT HIV 1 ANTIGEN(S), WITH HIV-1 AND HIV-2 ANTIBODIES Routine 11/20/2019 OBSTETRIC PANEL Routine 11/20/2019 documented in this encounter Results * (ABNORMAL) Hemoglobin and Hematocrit (04/02/2020 8:45 AM CDT) HGB 10.5(L) 12.0 - 16.0 G/DL 04/02/2020 9:[address] [facility] HCT 31.3(L) 38.0 - 48.0 % 04/02/2020 9:[address] [facility] 04/02/2020 8:45 AM CDT Mireille Tracey MD LABORATORY Final Result [facility] [address] [place] [address], [place] [phone] * (ABNORMAL) CBC W/DIFF AUTOMATED (04/01/2020 2:00 PM CDT) WBC 6.0 4.5 - 11.0 x10'3/uL 04/01/2020 2:[address] [facility] RBC 3.57(L) 4.20 - 5.40 x10'6/uL 04/01/2020 2:[address] [facility] HGB 11.1(L) 12.0 - 16.0 G/DL 04/01/2020 2:[address] [facility] HCT 33.5(L) 38.0 - 48.0 % 04/01/2020 2:[address] [facility] MCV 93.8 81.0 - 99.0 FL 04/01/2020 2:[address] [facility] MCH 31.1(H) 27.0 - 31.0 PG 04/01/2020 2:[address] [facility] MCHC 33.1 32.0 - 36.0 G/DL 04/01/2020 2:[address] [facility] RDW 13.2 11.5 - 14.5 % 04/01/2020 2:[address] [facility] PLT 211 130 - 400 x10'3/uL 04/01/2020 2:[address] [facility] MPV 11.6 9.3 - 12.2 FL 04/01/2020 2:[address] [facility] DIFFERENTIAL TYPE AUTOMATED DIFFERENTIAL 04/01/2020 2:[address] [facility] NEUTROPHILS % 61.2 % 04/01/2020 2:[address] [facility] LYMPHOCYTES % 28.3 % 04/01/2020 2:[address] [facility] MONOCYTES % 8.8 % 04/01/2020 2:[address] [facility] EOSINOPHILS 1.0 % 04/01/2020 2:[address] [facility] BASOPHILS 0.2 % 04/01/2020 2:[address] [facility] IMMATURE GRANS % 0.5 % 04/01/20 20 2:[address] [facility] ABS. NEUTROPHILS TOTAL 3.70 1.80 - 7.70 x10'3/uL 04/01/2020 2:[address] [facility] ABS. LYMPHOCYTES 1.71 1.00 - 4.80 x10'3/uL 04/01/2020 2:[address] [facility] ABS. MONOCYTES 0.53 0.24 - 0.86 x10'3/uL 04/01/2020 2:[address] [facility] ABS. EOSINOPHILS 0.06 0.04 - 0.36 x10'3/uL 04/01/2020 2:[address] [facility] ABS. BASOPHILS 0.01 0.01 - 0.08 x10'3/uL 04/01/2020 2:[address] [facility] ABS. IMMATURE GRANULOCYTES 0.03 0.00 - 0.49 x10'3/uL 04/01/2020 2:[address] [facility] 04/01/2020 2:00 PM CDT Mireille Tracey MD LABORATORY Final Result [facility] [address] [place] [address], * (ABNORMAL) URINALYSIS (04/01/2020 1:45 PM CDT) SPECIMEN TYPE URINE CLEAN CATCH 04/01/2020 2:[address] [facility] COLOR (U) LIGHT YELLOW 04/01/2020 3:[address] [facility] TRANSPARENCY CLEAR 04/01/2020 3:[address] [facility] SPECIFIC GRAVITY (U) 1.011 1.001 - 1.030 04/01/2020 3:[address] [facility] U PH 6.0 5.0 - 9.0 04/01/2020 3:[address] [facility] LEUKOCYTES (U) 25(A) NEGATIVE 04/01/2020 3:[address] [facility] NITRITES NEGATIVE NEGATIVE 04/01/2020 3:[address] [facility] PROTEIN (U) 10 <30 MG/DL 04/01/2020 3:[address] [facility] URINE GLUCOSE NORMAL NORMAL MG/DL 04/01/2020 3:[address] [facility] KETONES MG/DL (U) 40(A) NEGATIVE MG/DL 04/01/2020 3:[address] [facility] UROBILINOGEN NORMAL NORMAL MG/DL 04/01/2020 3:[address] [facility] BILIRUBIN (U) NEGATIVE NEGATIVE MG/DL 04/01/2020 3:[address] [facility] BLOOD (U) NEGATIVE NEGATIVE 04/01/2020 3:[address] [facility] MUCUS RARE /LPF 04/01/2020 3:[address] [facility] WBC/HPF 2 <6 /HPF 04/01/2020 3:[address] [facility] RBC/HPF 3 <6 /HPF 04/01/2020 3:[address] [facility] BACTERIA (U) FEW(A) NONE /HPF 04/01/2020 3:[address] [facility] SQUAMOUS EPITHELIALS RARE /HPF 04/01/2020 3:[address] [facility] URINE SPECIMEN OBTAINED BY CLEAN CATCH PROCEDURE / Unknown 04/01/2020 1:45 PM CDT us Mireille Tracey MD URINE ORDERABLES Final Resul t [facility] [address] [place] [address], * TYPE & SCREEN (04/01/2020 1:45 PM CDT) ABO/RH O POSITIVE 04/01/2020 3:[address] [facility] ANTIBODY SCREEN NEGATIVE 04/01/2020 3:[address] [facility] SAMPLE EXPIRATION 04/04/2020,2 359 04/01/2020 3:[address] [facility] 04/01/2020 1:45 PM CDT us Mireille Tracey MD BLOOD BANK TEST ORDERABLES F inal Result [facility] [address] [place] [address], * DRUG SCREEN RAPID (04/01/2020 1:45 PM CDT) Pathologist [facility] AMPHETAMINE (U) NEGATIVE NEGATIVE 0 2:[address] [facility] BARBITURATES SCREEN (U) NEGATIVE NEGATIVE 04/01/2020 2:[address] [facility] BENZODIAZEPINES SCREEN (U) NEGATIVE NEGATIVE 04/01/2020 2:[address] [facility] CANNABINOIDS SCREEN (U) NEGATIVE NEGATIVE 04/01/2020 2:[address] [facility] COCAINE METABOLITES (U) NEGATIVE NEGATIVE 04/01/2020 2:[address] [facility] METHADONE (U) NEGATIVE NEGATIVE 04/01/2020 2:[address] [facility] OPIATE SCREEN (U) NEGATIVE NEGATIVE 020 2:[address] [facility] PHENCYCLIDINE PCP (U) NEGATIVE NEGATIVE 04/01/2020 2:[address] [facility] Comment: NOTE: RESULTS OF THIS DRUG SCREEN SHOULD BE USED FOR MEDICAL PURPOSES ONLY AND NOT FOR LEGAL OR EMPLOYMENT PURPOSES. POSITIVE RESULTS ARE NOT CONFIRMED. MEDICATIONS CONTAINING EPHEDRINE MAY CAUSE FALSE POSITIVE AMPHETAMINE CALL [phone], LAB, TO REQUEST CONFIRMATION TESTING. IF CREATININE IS <40 mg/dL. ??RECOLLECTION IS SUGGESTED. AMPHETAMINE- ?500 NG/ML BARBITURATE- ?200 NG/ML BENZODIAZEPINES- ??200 NG/ML THC- ? 50 NG/ML COCAINE- ?150 NG/ML METHADONE- ?300 NG/ML OPIATE- ? 300 MG/ML PCP- ? 25 NG/ML CREATININE (U) 79.8 28 - 217 MG/DL 04/01/2020 2:[address] [facility] Urine specimen (specimen) URINE SPECIMEN / Unknown 04/01/2020 1:45 PM CDT Mireille Tracey MD URINE ORDERABLES Final Resul t Performing Organization Address City/State/[facility] Co de Phone Number [facility] [address] [place] [address], [place] [phone] * OBSTETRIC PANEL (11/20/2019) Pathologist [facility] SYPHILIS IGG AB NR us Doc [facility] Final Result * HIV 1 ANTIGEN(S), WITH HIV-1 AND HIV-2 ANTIBODIES (11/20/2019) Pathologist [facility] HIV 1/2 AB+ HIV1 P24 AG NR us Doc [facility] Final Result documented in this encounter Visit Diagnoses Diagnosis (HHS/HCC)- Primary state, incidental documented in this encounter Administered Medications Inactive Administered Medications - up to 3 most recent administrations Medication Order MAR Action Action Date Dose Rate Site acetaminophen (TYLENOL) tablet 650 mg 650 mg, Oral, Every 4 hours PRN, Mild pain (Scale 1 - 3), Fever, Starting on 04/01/20 at 1402, Until Dilcia 04/02/20 at 0015, Maximum dose of acetaminophen is 4000 mg from all sources in 24 hours. Given 04/01/2020 3:12 PM CDT 650 mg acetaminophen (TYLENOL) tablet 650 mg 650 mg, Oral, Every 4 hours PRN, Mild pain (Scale 1 - 3), Starting on Dilcia 04/02/20 at 0015, Until Mon04/03/20 at 1505, Maximum dose of acetaminophen is 4000 mg from all sources in 24 hours. Given 04/03/2020 9:38 AM CDT 650 mg benzocaine-menthol (DERMOPLAST) 20-0.5 % topical spray 1 spray 1 spray, Topical, 4 times daily PRN, Pain, Perineal discomfort, Starting on Dilcia 04/02/20 at 0015, Until Mon04/03/20 at 1505, Do NOT recommend use for pain in infants & children under 2 years. dibucaine (perianal) (NUPERCAINAL) ointment Perianal, 4 times daily PRN, Rectal discomfort, Starting on Dilcia 04/02/20 at 0016, Until Mon04/03/20 at 1505 diphenhydrAMINE (BENADRYL) 12.5 MG/5ML elixir 25 mg 25 mg, Oral, Every 6 hours PRN, Itching, Starting on Dilcia 04/02/20 at 0015, Until Mon04/03/20 at 1505, Give if unable to swallow tablets/capsules or if patient prefers liquid. diphenhydrAMINE (BENADRYL) capsule 25 mg 25 mg, Oral, Every 6 hours PRN, Itching, Starting on Dilcia 04/02/20 at 0015, Until Mon04/03/20 at 1505 diphenhydrAMINE (BENADRYL) injection 25 mg 25 mg, Intravenous, Once as needed, Itching, 1 dose, Starting on Mon04/01/20 at 2033, Until Mon04/03/20 at 1505, For IV administration, give no faster than 25 mg/min. diphenhydrAMINE (BENADRYL) injection 25 mg 25 mg, Intravenous, Every 6 hours PRN, Itching, Starting on Dilcia 04/02/20 at 0015, Until Mon04/03/20 at 1505, Give if unable to take PO. For IV administration, give no faster than 25 mg/min. docusate sodium (COLACE) capsule 100 mg 100 mg, Oral, Every 12 hours scheduled (2 times per day), First dose on Mon04/02/20 at 0900, Until Discontinued Given 04/03/2020 9:38 AM CDT 100 mg Given 04/02/2020 8:40 PM CDT 100 mg Given 04/02/2020 8:41 AM CDT 100 mg famotidine (PEPCID) tablet 20 mg 20 mg, Oral, Every 12 hours PRN, Other, dyspepsia, Starting on Mon04/01/20 at 1402, Until Mon04/03/20 at 1505 HYDROcodone-acetaminophen (NORCO) 5-325 MG tablet 1 tablet 1 tablet, Oral, Every 4 hours PRN, Moderate pain (Scale 4 - 7), Starting on Mon04/02/20 at 0016, Until Mon04/03/20 at 1505, Maximum dose of acetaminophen is 4000 mg from all sources in 24 hours. ibuprofen (MOTRIN) tablet 600 mg 600 mg, Oral, Every 6 hours PRN, Mild pain (Scale 1 - 3), Cramping, Starting on Mon04/02/20 at 0016, Until Mon04/03/20 at 1505, Do not order ibuprofen and Vicoprofen (hydrocodone/ibuprofen) together. Given 04/03/2020 11:38 AM CDT 600 mg Given 04/03/2020 6:20 AM CDT 600 mg Given 04/02/2020 11:36 PM CDT 600 mg lactated ringers infusion at 125 mL/hr, Intravenous, Continuous, Starting on Mon04/01/20 at 1430, Until Mon04/02/20 at 0015, For all patients in active labor with non-vertex presentation, multiple gestation, previous , persistent non-reassuring FHR, Hx post- hemorrhage, active phase longer than 8 hrs and/or patient desires an epidural. New Bag 04/01/2020 8:23 PM CDT 125 mL/hr hlbyafmfc-sakjdeab-tcxofgp cone (MYLANTA MAXIMUM STRENGTH) [id number] mg/30mL suspension 10 mL, Oral, Every 6 hours PRN, Indigestion, dyspepsia, Starting on Mon04/01/20 at 1402, Until Mon04/03/20 at 1505, Shake Well miSOPROStol (CYTOTEC) Split tab 25 mcg 25 mcg, Vaginal, Every 4 hours PRN, Other, cervical ripening, Starting on Mon04/01/20 at 1456, Until Dilcia 04/02/20 at 0015, Hold dose if adequate contraction pattern defined as 3-5 contractions in 10 minutes or cervical change occurs. Keep patient recumbent for 30 minutes post placement. Given 04/01/2020 3:17 PM CDT 25 mcg naLOXone (NARCAN) injection 0.4 mg 0.4 mg, Intravenous, As needed, Opioid reversal, If patient exhibits somnolence and/or excessive sedation or if respirations fall below 8 per minute, 2 doses, Starting on Mon04/01/20 at 2033, Until Mon04/03/20 at 1505, Administer every 2 minutes as needed for 2 doses. ondansetron (ZOFRAN) injection 4 mg 4 mg, Intravenous, Every 8 hours PRN, Nausea, Vomiting, Starting on Dilcia 04/02/20 at 0015, Until Mon04/03/20 at 1505, Use IV if patient unable to take oral order for ondansetron. ondansetron (ZOFRAN-ODT) disintegrating tablet 8 mg 8 mg, Oral, Every 8 hours PRN, Nausea, Vomiting, Starting on Dilcia 04/02/20 at 0015, Until Mon04/03/20 at 1505 oxyCODONE-acetaminophen (PERCOCET) 5-325 MG tablet 1 tablet 1 tablet, Oral, Every 4 hours PRN, Severe pain (Scale 8 - 10), Starting on Dilcia 04/02/20 at 0016, Until Mon04/03/20 at 1505, Maximum dose of acetaminophen is 4000 mg from all sources in 24 hours. oxytocin (PITOCIN) 30 units in NS 500 mL infusion 0-300 mL/hr, Intravenous, Continuous, Starting on Mon04/01/20 at 1430, Until Mon04/03/20 at 1505, Initial rate at 300 ml/hr for the 1st hour, then decrease to 60 mL/hr for the 2nd hour.?? Continue this rate until the fundus is firm or the patient has completed her recovery phase. HAZARDOUS MEDICATION Restarted 04/01/2020 11:49 PM CDT 300 mL/hr 300 mL/hr oxytocin (PITOCIN) 30 units in NS 500 mL infusion 0-300 grabiel-units/min (0-300 mL/hr), Intravenous, Continuous, Starting on 04/01/20 at 2045, Until Dilcia 04/02/20 at 0015, Start at 2 grabiel-unit/min. Increase by 2 grabiel-unit/min every 30 minutes until adequate contraction defined as 3-5 contractions in 10 minutes or cervical change occurs. Max dose of 30 grabiel-units/min. Notify provider when dose has reached 20 grabiel-unit/min. RN to adjust dose based upon maternal and/or response. If uterine tachysystole occurs with reassuring FHR:, -Decrease oxytocin rate by half -If tachysystole does not resolve within 15 minutes after initial intervention, stop oxytocin infusion and notify provider If uterine tachysystole occurs when the FHR is NOT reassuring: -Stop the oxytocin infusion. -Follow guidelines below for resumption of oxytocin when tachysystole resolved: If oxytocin is stopped due to tachysystole for less than 30 minutes resume oxytocin at half the rate at time it was stopped. If oxytocin is stopped due to tachysystole for longer than 30 minutes resume oxytocin at the initial ordered dose. If stopped for less than 30 minutes resume at half the rate at time it was stopped If stopped for more than 30 minutes resume at the initial dose ordered. Following delivery infuse any remaining oxytocin at 300ml/hr (300 grabiel-units/min) for the fist hour, then decrease to 60 ml/r (60 grabiel-units/min) for the 2nd hour. Continue this rate until the fundus is firm or the patient has completed her recovery phase. HAZARDOUS MEDICATION HAZARDOUS MEDICATION Rate/Dose Change 04/01/2020 11:14 PM CDT 2 grabiel-units/min 2 mL/hr Rate/Dose Change 04/01/2020 10:05 PM CDT 4 grabiel-units/min 4 mL/hr New Bag 04/01/2020 9:30 PM CDT 2 grabiel-units/min 2 mL/h r rho D immune globulin (RHOPHYLAC) injection 300 mcg 300 mcg, Intravenous, Once, 1 dose, On Dilcia 04/02/20 at 1130, Prevention of rhesus (Rh) isoimmunization: Infuse at 2 mL per 5 to 15 seconds. Treatment of ITP: Infuse over 3 to 5 minutes. Given 04/02/2020 11:34 AM CDT 300 mcg documented in this encounter Active and Recently Administered Medications Times are shown in CDT. Scheduled Medication Order 04/01/2020 04/02/2020 04/03/2020 docusate sodium (COLACE) capsule 100 mg 100 mg, Oral, Every 12 hours scheduled (2 times per day), First dose on Dilcia 04/02/20 at 0900, Until Discontinued 08 (Given - Provider: Tanya Renee RN)2039 (Given - Provider: Jade Rod RN) 937 (Given - Provider: Kimberley Escudero RN) rho D immune globulin (RHOPHYLAC) injection 300 mcg (COMPLETED) 300 mcg, Intravenous, Once, 1 dose, On Dilcia 04/02/20 at 1130, Prevention of rhesus (Rh) isoimmunization: Infuse at 2 mL per 5 to 15 seconds. Treatment of ITP: Infuse over 3 to 5 minutes. 113 (Given - Provider: Tanya Renee RN) Continuous Medication Order 04/01/2020 04/02/2020 04/03/2020 fentaNYL 2 mcg/mL-BUpivacaine 0.125 % 150 mL epidural (CANCELED) 12 mL/hr, Epidural, Continuous, Starting on 04/01/20 at 2100, Until Dilcia 04/02/20 at 0015, Continuous Epidural Infusion with Patient Controlled Epidural Analgesia (PCEA) BASAL INFUSION RATE: 12 mL/hr PCEA DEMAND DOSE: 7mL LOCKOUT INTERVAL: 30 minutes MAX DOSE LOCKOUT: 112mL / 4 hours 2104 (New Bag - Provider: Luciano Avery CRNA - Comment: 2ml loading dose via epidural pump. )2343 (Infusion Stop Time - Provider: Luciano Avery CRNA) lactated ringers infusion (CANCELED) at 125 mL/hr, Intravenous, Continuous, Starting on Mon04/01/20 at 1430, Until Dilcia 04/02/20 at 0015, For all patients in active labor with non-vertex presentation, multiple gestation, previous , persistent non-reassuring FHR, Hx post- hemorrhage, active phase longer than 8 hrs and/or patient desires an epidural. 2022 (New Bag - Provider: Gini Castillo RN) oxytocin (PITOCIN) 30 units in NS 500 mL infusion 0-300 mL/hr, Intravenous, Continuous, Starting on Mon04/01/20 at 1430, Until Mon04/03/20 at 1505, Initial rate at 300 ml/hr for the 1st hour, then decrease to 60 mL/hr for the 2nd hour.?? Continue this rate until the fundus is firm or the patient has completed her recovery phase. HAZARDOUS MEDICATION 1430 (Canceled Entry - Provider: Automatic Discharge Provider - Comment: Automatically canceled at discontinue of medication order)2349 (Restarted - Provider: Gini Castillo, HARSHA) 0130 (Infusion Stop Time - Provider: Gini Castillo, HARSHA) oxytocin (PITOCIN) 30 units in NS 500 mL infusion (CANCELED) 0-300 grabiel-units/min (0-300 mL/hr), Intravenous, Continuous, Starting on Mon04/01/20 at 2045, Until Dilcia 04/02/20 at 0015, Start at 2 grabiel-unit/min. Increase by 2 grabiel-unit/min every 30 minutes until adequate contraction defined as 3-5 contractions in 10 minutes or cervical change occurs. Max dose of 30 grabiel-units/min. Notify provider when dose has reached 20 grabiel-unit/min. RN to adjust dose based upon maternal and/or response. If uterine tachysystole occurs with reassuring FHR:, -Decrease oxytocin rate by half -If tachysystole does not resolve within 15 minutes after initial intervention, stop oxytocin infusion and notify provider If uterine tachysystole occurs when the FHR is NOT reassuring: -Stop the oxytocin infusion. -Follow guidelines below for resumption of oxytocin when tachysystole resolved: If oxytocin is stopped due to tachysystole for less than 30 minutes resume oxytocin at half the rate at time it was stopped. If oxytocin is stopped due to tachysystole for longer than 30 minutes resume oxytocin at the initial ordered dose. If stopped for less than 30 minutes resume at half the rate at time it was stopped If stopped for more than 30 minutes resume at the initial dose ordered. Following delivery infuse any remaining oxytocin at 300ml/hr (300 grabiel-units/min) for the fist hour, then decrease to 60 ml/r (60 grabiel-units/min) for the 2nd hour. Continue this rate until the fundus is firm or the patient has completed her recovery phase. HAZARDOUS MEDICATION HAZARDOUS MEDICATION 2129 (New Bag - Provider: Gini Castillo, RN)2204 (Rate/Dose Change - Provider: Gini Castillo RN)2313 (Rate/Dose Change - Provider: Gini Castillo, RN)232 (Infusion Stop Time - Provider: Gini Castillo, RN) PRN Medication Order 04/01/2020 04/02/2020 04/03/2020 acetaminophen (TYLENOL) tablet 650 mg (CANCELED) 650 mg, Oral, Every 4 hours PRN, Mild pain (Scale 1 - 3), Fever, Starting on Mon04/01/20 at 1402, Until Dilcia 04/02/20 at 0015, Maximum dose of acetaminophen is 4000 mg from all sources in 24 hours. 1512 (Given - Provider: Sri Buchanan RN) acetaminophen (TYLENOL) tablet 650 mg 650 mg, Oral, Every 4 hours PRN, Mild pain (Scale 1 - 3), Starting on Mon04/02/20 at 0015, Until Mon04/03/20 at 1505, Maximum dose of acetaminophen is 4000 mg from all sources in 24 hours. 0938 (Given - Provider: Kimberley Escudero RN) benzocaine-menthol (DERMOPLAST) 20-0.5 % topical spray 1 spray 1 spray, Topical, 4 times daily PRN, Pain, Perineal discomfort, Starting on Dilcia 04/02/20 at 0015, Until Mon04/03/20 at 1505, Do NOT recommend use for pain in infants & children under 2 years. dibucaine (perianal) (NUPERCAINAL) ointment Perianal, 4 times daily PRN, Rectal discomfort, Starting on Dilcia 04/02/20 at 0016, Until Mon04/03/20 at 1505 diphenhydrAMINE (BENADRYL) 12.5 MG/5ML elixir 25 mg(Linked Group 1) 25 mg, Oral, Every 6 hours PRN, Itching, Starting on Dilcia 04/02/20 at 0015, Until Mon04/03/20 at 1505, Give if unable to swallow tablets/capsules or if patient prefers liquid. diphenhydrAMINE (BENADRYL) capsule 25 mg(Linked Group 1) 25 mg, Oral, Every 6 hours PRN, Itching, Starting on Mon04/02/20 at 0015, Until Mon04/03/20 at 1505 diphenhydrAMINE (BENADRYL) injection 25 mg 25 mg, Intravenous, Once as needed, Itching, 1 dose, Starting on Mon04/01/20 at 2033, Until Mon04/03/20 at 1505, For IV administration, give no faster than 25 mg/min. diphenhydrAMINE (BENADRYL) injection 25 mg(Linked Group 1) 25 mg, Intravenous, Every 6 hours PRN, Itching, Starting on Mon04/02/20 at 0015, Until Mon04/03/20 at 1505, Give if unable to take PO. For IV administration, give no faster than 25 mg/min. famotidine (PEPCID) tablet 20 mg 20 mg, Oral, Every 12 hours PRN, Other, dyspepsia, Starting on Mon04/01/20 at 1402, Until Mon04/03/20 at 1505 HYDROcodone-acetaminophen (NORCO) 5-325 MG tablet 1 tablet 1 tablet, Oral, Every 4 hours PRN, Moderate pain (Scale 4 - 7), Starting on Mon04/02/20 at 0016, Until Mon04/03/20 at 1505, Maximum dose of acetaminophen is 4000 mg from all sources in 24 hours. ibuprofen (MOTRIN) tablet 600 mg 600 mg, Oral, Every 6 hours PRN, Mild pain (Scale 1 - 3), Cramping, Starting on Mon04/02/20 at 0016, Until Mon04/03/20 at 1505, Do not order ibuprofen and Vicoprofen (hydrocodone/ibuprofen) together. 0300 (Given - Provider: Jade Rod RN)0840 (Given - Provider: Tanya Renee RN)1713 (Given - Provider: Blanca Solo RN)2336 (Given - Provider: Jade Rod RN) 0620 (Given - Provider: Jade Rod, HARSHA)1138 (Given - Provider: Kimberley Escudero RN) ypxkuxlay-mupovgoo-mxbnqq icone (MYLANTA MAXIMUM STRENGTH) 2792-2439-782 mg/30mL suspension 10 mL, Oral, Every 6 hours PRN, Indigestion, dyspepsia, Starting on Mon04/01/20 at 1402, Until Mon04/03/20 at 1505, Shake Well miSOPROStol (CYTOTEC) Split tab 25 mcg (CANCELED) 25 mcg, Vaginal, Every 4 hours PRN, Other, cervical ripening, Starting on Mon04/01/20 at 1456, Until Mon04/02/20 at 0015, Hold dose if adequate contraction pattern defined as 3-5 contractions in 10 minutes or cervical change occurs. Keep patient recumbent for 30 minutes post placement. 1517 (Given - Provider: Bobbi Carrero RN) naLOXone (NARCAN) injection 0.4 mg 0.4 mg, Intravenous, As needed, Opioid reversal, If patient exhibits somnolence and/or excessive sedation or if respirations fall below 8 per minute, 2 doses, Starting on Mon04/01/20 at 2033, Until Mon04/03/20 at 1505, Administer every 2 minutes as needed for 2 doses. ondansetron (ZOFRAN) injection 4 mg 4 mg, Intravenous, Every 8 hours PRN, Nausea, Vomiting, Starting on Mon04/02/20 at 0015, Until Mon04/03/20 at 1505, Use IV if patient unable to take oral order for ondansetron. ondansetron (ZOFRAN-ODT) disintegrating tablet 8 mg 8 mg, Oral, Every 8 hours PRN, Nausea, Vomiting, Starting on Mon04/02/20 at 0015, Until Mon04/03/20 at 1505 oxyCODONE-acetaminophen (PERCOCET) 5-325 MG tablet 1 tablet 1 tablet, Oral, Every 4 hours PRN, Severe pain (Scale 8 - 10), Starting on Mon04/02/20 at 0016, Until Mon04/03/20 at 1505, Maximum dose of acetaminophen is 4000 mg from all sources in 24 hours. Linked Groups Order Group 1: diphenhydrAMINE (BENADRYL) injection 25 mgJump to med 25 mg, Intravenous, Every 6 hours PRN, Itching, Starting on Mon04/02/20 at 0015, Until Mon04/03/20 at 1505, Give if unable to take PO. For IV administration, give no faster than 25 mg/min. Or diphenhydrAMINE (BENADRYL) capsule 25 mgJump to med 25 mg, Oral, Every 6 hours PRN, Itching, Starting on Dilcia 04/02/20 at 0015, Until Mon04/03/20 at 1505 Or diphenhydrAMINE (BENADRYL) 12.5 MG/5ML elixir 25 mgJump to med 25 mg, Oral, Every 6 hours PRN, Itching, Starting on Dilcia 04/02/20 at 0015, Until Mon04/03/20 at 1505, Give if unable to swallow tablets/capsules or if patient prefers liquid. documented in this encounter Care Teams Foreign Food Cook Specialty Relationship Specialty Start Date End Date Elan Ying MD [address] [id number] PCP - General FAMILY PRACTICE 03/25/20 documented as of this encounter
--- OUTSIDE RECORDS SUMMARY | 2024-08-26 13:44 | XMS_ITS | Data Portability ---
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 Date Initial Exam Provider Initial Ultrasound Date Last Menstrual Period Date Ultra Sound Weeks Gestation 0 Eighteen To Twenty Week Tien Update Ultra Sound Date Fundal Height At Umbil Quickening Date Ultra Sound Latest Weeks Gestation Final Tien Confirmed By Final Tien Confirmed Date Final Tien Date Ultra Sound Latest Days Gestation 0 0 Menstrual History Last Menstrual Date Menses Monthly On Bcp Conception Prior Menses Frequency Hcg Plus Date Menarche Onset Age Delivery Information Delivery Date Delivery Type Labor Anesthesia Weeks Gestation Incision Type Labor Labor Length Hrs Delivered By Post Complications Tubal Sterilization Discharge Date Comments 0 [facility] idural 39 Discharge Information Feeding Method Contraceptive Method Maternal HG B and HCT Levels Ob Episode Information Episode Created Date Number of Fetuses Patient Bloodtype Patient rh Status Prepregnancy Weight lbs Domestic Partner Domestic Partner Phone 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 06/30/20 21 1 CLOSED Fetus Data First Name Last Name Admitted to NICU Weight (g) Sex Living Outcome Pediatric Complications Fetus ID Race Codes Race Delivery Type 3175.14 4 F Full Term [id number] Tien Calculation Initial Tien Date Initial Exam Date Initial Exam Provider Initial Ultrasound Date Last Menstrual Period Date Ultra Sound Weeks Gestation 0 Eighteen To Twenty Week Tien Update Ultra Sound Date Fundal Height At Umbil Quickening Date Ultra Sound Latest Weeks Gestation Final Tien Confirmed By Final Tien Confirmed Date Final Tien Date Ultra Sound Latest Days Gestation 0 0 Menstrual History Last Menstrual Date Menses Monthly On Bcp Conception Prior Menses Frequency Hcg Plus Date Menarche Onset Age Delivery Information Delivery Date Delivery Type Labor Anesthesia Weeks Gestation Incision Type Labor Labor Length Hrs Delivered By Post Complications Tubal Sterilization Discharge Date Comments 3 [facility] idural 42.1 Discharge Information Feeding Method Contraceptive Method Maternal HG B and HCT Levels Ob Episode Information Episode Created Date Number of Fetuses Patient Bloodtype Patient rh Status Prepregnancy Weight lbs Domestic Partner Domestic Partner Phone 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 07/19/20 21 1 CLOSED Fetus Data First Name Last Name Admitted to NICU Weight (g) Sex Living Outcome Pediatric Complications Fetus ID Race Codes Race Delivery Type [id number] 4 F Full Term [id number] Primary Tien Calculation Initial Tien Date Initial Exam Date Initial Exam Provider Initial Ultrasound Date Last Menstrual Period Date Ultra Sound Weeks Gestation 0 Eighteen To Twenty Week Tien Update Ultra Sound Date Fundal Height At Umbil Quickening Date Ultra Sound Latest Weeks Gestation Final Tien Confirmed By Final Tien Confirmed Date Final Tien Date Ultra Sound Latest Days Gestation 0 0 Menstrual History Last Menstrual Date Menses Monthly On Bcp Conception Prior Menses Frequency Hcg Plus Date Menarche Onset Age Delivery Information Delivery Date Delivery Type Labor Anesthesia Weeks Gestation Incision Type Labor Labor Length Hrs Delivered By Post Complications Tubal Sterilization Discharge Date Comments 1 39.1 Discharge Information Feeding Method Contraceptive Method Maternal HG B and HCT Levels
== END 2024-08-19 08:27 | disposition home or self-care (01) ==
PROVIDERS: PCP Family Medicine; Visit Provider Physician Assistant Surgical
DX: S69.92XA Unspecified injury of left wrist, hand and finger(s), initial encounter (principal); X58.XXXA Exposure to other specified factors, initial encounter
CPT/HCPCS: 73110